=== PATIENT | male | born 1950 | race Caucasian/White ===

== ENCOUNTER → 2022-10-17 06:56 | Outpatient (CLI) | payer MEDICARE, OTHER, SELFPAY ==
--- NOTE | 2022-10-17 | DI.MRI.S_ITS ---
PROCEDURE: MR LUMBAR SPINE WO CON INDICATIONS: Radiculopathy, lumbar region TECHNIQUE: Noncontrast sagittal T1 spin echo and T2 fast echo, sagittal STIR, and T2 fast spin echo through the lumbar spine. In cases with scoliosis, additional coronal T2 fast spin echo may be performed. COMPARISON: [facility] [place], CR, XR LUMBAR SPINE 2 OR 3 VIEWS, 06/01/2020, 11:52. FINDINGS: Image quality: Excellent. Alignment and Curvature: There is normal bony alignment. Bone Marrow: Marrow is of normal overall signal. No acute vertebral body compression fractures. There is partial lumbarization of the S1 vertebral body Spinal Cord: Conus medullaris terminates at the L1 level. Visualized cord demonstrates normal signal and size. Paraspinous Soft Tissues: No paravertebral masses. Bilateral renal cysts T12-L1: Normal appearance. L1-L2: Disc space narrowing with posterior disc bulge associated with hypertrophic facet joints results in moderate central stenosis. Mild foraminal stenosis bilaterally. L2-L3: Disc space narrowing with circumferential disc bulge, dorsal epidural fat and hypertrophic facet joints associated with moderate to severe central stenosis. Moderate bilateral foraminal stenosis L3-L4: Disc space narrowing with circumferential disc bulge and hypertrophic facet joints combines with dorsal epidural fat result in severe central stenosis. Severe right and moderate left foraminal stenosis L4-L5: Disc space narrowing with circumferential disc bulge and hypertrophic facet joints results in moderate to severe central stenosis. Severe bilateral foraminal stenosis L5-S1: Disc space narrowing with asymmetric right disc bulge effaces the right lateral recess. Severe right and left foraminal stenosis. IMPRESSION: 1. Multilevel degenerative disc disease and arthropathy results in varying degrees of central and foraminal stenosis including severe central and foraminal stenosis L3-4, moderate to severe central stenosis L2-3 and L4-5 2. 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 on 10/17/2022 at 12:10
== END ==
PROVIDERS: Referring Provider Physical Medicine & Rehabilitation; Visit Provider Physical Medicine & Rehabilitation
DX: M51.16 Intervertebral disc disorders with radiculopathy, lumbar region (principal); M51.17 Intervertebral disc disorders with radiculopathy, lumbosacral region; M47.26 Other spondylosis with radiculopathy, lumbar region; M48.061 Spinal stenosis, lumbar region without neurogenic claudication; M48.07 Spinal stenosis, lumbosacral region; M43.27 Fusion of spine, lumbosacral region
CPT/HCPCS: 72148

== ENCOUNTER → 2023-09-04 06:43 | Outpatient (CLI) | payer OTHER, SELFPAY ==
--- NOTE | 2023-09-04 06:44 | DI.ECHO.S_ITS ---
[place] [facility]---------+ [facility] : : [id number] : [place] : : [id number] : : Phone: [phone] Echocardiogram Report + + :Name: SHANNAN RHODES Study Date: 09/04/2023 Height: 66 in : :[facility] ReadingLocation: Weight: 195 lb : : Gender: Male BSA: 2.0 m2 : :: 1950 Age: 73 yrs BP: 160/97 mmHg: :Reason For Study: CAD S/P NV : :Ordering Physician: KATALINA, : :PENG Lanza Performed By: Wan De Dios : :Referring: UNSPECIFIED : + + Interpretation Summary The ejection fraction is estimated to be 50-55%. Endocardial wall definition is limited. Possible inferior hypokinesis. Diastolic function could not be accurately assessed due to contradictory data. The right ventricle is mildly dilated. Right ventricular systolic function is mildly reduced. There is moderate biatrial enlargement. There is mild mitral regurgitation. There is mild aortic regurgitation. Pulmonary artery pressures cannot be estimated because of the lack of a measurable TR jet velocity but the IVC suggests a CVP of around 8 mmHg. The ascending aorta is mildly enlarged, 3.9 cm. Compared to the prior study dated 08/25/2020, the right ventricle now appears mildly hypokinetic. Procedure: A two-dimensional transthoracic echocardiogram with color flow and Doppler was performed. The study quality was technically adequate. Comparison is made with the echocardiogram of 08/25/2020. The heart rate ranged between 50-83 bpm during the study. Left Ventricle: The left ventricle is normal in size and wall thickness. The ejection fraction is estimated to be 50-55%. Endocardial wall definition is limited. Possible inferior hypokinesis. Diastolic function could not be accurately assessed due to contradictory data. Right Ventricle: The right ventricle is mildly dilated. Right ventricular systolic function is mildly reduced. Atria: There is moderate biatrial enlargement. The interatrial septum grossly appears intact with no obvious evidence for an atrial septal defect. Mitral Valve: The mitral valve is normal. There is no mitral valve stenosis. There is mild mitral regurgitation. Aortic Valve: The aortic valve is trileaflet. The aortic valve is mildly calcified. There is no aortic valve stenosis. There is mild aortic regurgitation. Tricuspid Valve: The tricuspid valve is normal in structure and function. There is no tricuspid stenosis. There is mild tricuspid regurgitation. Pulmonary artery pressures cannot be estimated because of the lack of a measurable TR jet velocity but the IVC suggests a CVP of around 8 mmHg. Pulmonic Valve: The pulmonic valve is not well seen, but is grossly normal. There is no pulmonic valvular stenosis. There is mild pulmonic regurgitation. Great Vessels: The aortic root is mildly dilated. The ascending aorta is mildly enlarged. The IVC is of normal diameter and collapses less than 50% with a sniff. This suggests a right atrial pressure of 8 mm Hg. Pericardium/ Pleura There is no pericardial effusion. There is no pleural effusion. MMode/2D Measurements & Calculations LVIDd: 5.1 cm LVOT diam: 2.3 cm LVIDs: 3.6 cm Ao root diam: 4.0 cm FS: 29.1 % asc Aorta Diam: 3.9 cm IVSd: 0.95 cm Ao Arch Diam (Prox Trans): 3.3 cm LVPWd: 1.0 cm LV rodríguez. diameter/BSA (cm/m^2): 2.6 LV sys. diameter/BSA (cm/m^2): 1.8 LA A2 area: 21.8 cm2 RA long axis: 4.9 cm LA A4 area: 24.0 cm2 RA area: 15.7 cm2 LA length (vol): 5.5 cm RA vol: 42.8 ml LA vol: 80.6 ml RA : 21.6 ml/m2 LA vol index: 40.7 ml/m2 IVC diam: 2.0 cm RVD1 (basal): 4.3 cm RVD2 (mid): 3.3 cm TAPSE: 2.4 cm Doppler Measurements & Calculations Ao V2 max: 114.2 cm/sec LVOT Max Giovani: 79.0 cm/sec Ao V2 mean: 76.8 cm/sec LV V1 max P.5 mmHg Ao max P.2 mmHg LV V1 VTI: 25.3 cm Ao mean P.7 mmHg NILE(I,D): 3.8 cm2 Ao V2 VTI: 28.9 cm NILE(V,D): 3.0 cm2 sev ratio: 0.88 NILE indexed to BSA (cm^2/m^2): 1.9 AI P1/2t: 470.1 msec AI dec slope: 232.7 cm/sec2 MV E max giovani: 51.8 cm/sec TR max giovani: 261.8 cm/sec MV A max giovani: 86.1 cm/sec TR max P.6 mmHg MV E/A: 0.60 PA V2 max: 95.9 cm/sec Med Peak E' Giovani: 3.9 cm/sec PA V2 mean: 58.3 cm/sec E/E' med: 13.4 PA mean P.6 mmHg Lat Peak E' Giovani: 3.6 cm/sec PA pr(Accel): 36.2 mmHg E/E' lat: 14.4 E/e' average: 13.9 MV dec time: 0.27 sec SV(LVOT): 109.8 ml Reading Physician:05:41 PM
== END ==
LOC: ECHO 06:44
PROVIDERS: PCP Internal Medicine; Referring Provider Family Medicine; Visit Provider Family Medicine
DX: Z00.00 Encounter for general adult medical examination without abnormal findings (principal); I08.3 Combined rheumatic disorders of mitral, aortic and tricuspid valves; I77.810 Thoracic aortic ectasia; I77.89 Other specified disorders of arteries and arterioles
CPT/HCPCS: 93306